=== PATIENT | female | born 1945 | race Caucasian/White ===

== ENCOUNTER → 2016-10-03 | Outpatient (CLI) | payer MEDICARE, MEDICAID ==
[~2016-10-03] MED LIST: ASPI81TA2 PO; FLUT1DIS3 ORAL INH; GADOBUTROL 10mMol/10ml INJECTION IV ONE; IPRA3AMP AEROSOL; METF-462 PO; NITR0.4T38 SL; OXYC1TAB8 PO; SALINE FLUSH 10ml SYRINGE ONE; TRAM50TA4 PO; TRAZ-170 PO
--- NOTE | 2016-10-03 17:28 | DI ---
Indication: ITS.REASON: C34.12 Malignant neoplasm of upper lobe, left bronchus or lung PROCEDURE: MRI THORACIC SPINE W/WO CONTRA: Encounter: Initial Comparison: Thoracic spine radiographs dated August 25, 2016 Technique: Multiplanar, multisequence, thoracic spine protocol MR imaging with and without contrast of the spine was acquired. Contrast: 6.5 mL of Gadavist FINDINGS: Post radiation changes noted in the upper to mid thoracic spine. Alignment of the thoracic spine is stable with scoliosis. The vertebral body heights are maintained. Age-appropriate degenerative changes are seen within the facet joints and intervertebral disc, but these do not result in significant compromise of the spinal canal or neural foramina. The thoracic cord is normal in morphology, caliber, and signal intensity on the acquired sequences. There is no evidence of cord compression or intraspinal mass. No abnormal enhancement is evident. Severe degenerative disk disease in the lower cervical spine, incompletely evaluated on this study. There appears to be some cord impingement and probable myelomalacia at the C6-C7 level. Cavitary left lower lobe lung mass, incompletely evaluated on this modality and not completely imaged. IMPRESSION: 1. No metastatic disease seen. No acute fracture. 2. Severe degenerative disk disease in the visualized lower cervical spine. .
== END ==
LOC: IMA 16:19
PROVIDERS: ATTEND Internal Medicine Hematology & Oncology
DX: C34.12 Malignant neoplasm of upper lobe, left bronchus or lung (principal); M50.323 Other cervical disc degeneration at C6-C7 level
CPT/HCPCS: 72157; A9585; J1642

== ENCOUNTER → 2016-10-20 | Outpatient (CLI) | payer MEDICARE, MEDICAID ==
[~2016-10-20] MED LIST changes: -GADOBUTROL 10mMol/10ml INJECTION IV ONE; -SALINE FLUSH 10ml SYRINGE ONE
--- NOTE | 2016-10-20 08:29 | DI ---
INDICATION: ITS.REASON: C34.12 LEFT LUNG CA PROCEDURE: CHEST 2-VIEWS UPRIGHT (PA \T\ LAT) Encounter: Subsequent COMPARISON: CT chest from September 19, 2016 and chest x-ray dated August 04, 2016 FINDINGS: Cavitary left upper lobe lung mass is better evaluated on the recent CT comparison. Radiographic measurements are stable from the July comparison chest x-ray. Calcified granulomas in the right lung. No focal pneumonia. There is no pleural effusion or pneumothorax. The heart size, mediastinal contours and pulmonary vascularity are unchanged. Right IJ port catheter. IMPRESSION: Stable appearance of the chest without evidence of pneumonia. .
== END ==
LOC: IMA 07:56
PROVIDERS: ATTEND Internal Medicine Hematology & Oncology
DX: C34.12 Malignant neoplasm of upper lobe, left bronchus or lung (principal)

== ENCOUNTER → 2016-11-10 | Outpatient (CLI) | payer MEDICARE, MEDICAID ==
--- NOTE | 2016-11-10 12:35 | DI ---
INDICATION: ITS.REASON: C34.12 Malignant neoplasm of upper lobe, left bronchus or lung PROCEDURE: CHEST 2-VIEWS UPRIGHT (PA \T\ LAT) Encounter: Initial COMPARISON: 10/20/2016 FINDINGS: There is a patchy oval centrally cystic lesion in the left mid to upper lung that measures 2.6 x 3.7 cm compared to 4 x 3.2 on prior studies. The lungs are somewhat emphysematous and hyperinflated with some lobulation of the diaphragms. In the right lung base laterally. Heart size is normal. There is mild dextroconvexity of the thoracolumbar junction. Right no pleural effusion. The there is a right IJ port in place with its tip overlying the mid to lower SVC, unchanged. Heart size, mediastinal contours and pulmonary vascularity are within normal limits. There is no significant skeletal abnormality. IMPRESSION: Cavitary lesion in the left upper lobe, without significant change from prior exam. .
== END ==
LOC: IMA 07:28
PROVIDERS: ATTEND Internal Medicine Hematology & Oncology
DX: C34.12 Malignant neoplasm of upper lobe, left bronchus or lung (principal)

== ENCOUNTER → 2016-12-03 | Outpatient (CLI) | payer MEDICARE, MEDICAID ==
[~2016-12-03] MED LIST changes: +IOHEXOL 300 MG/ML 50ml INJECTION ONE; +IOHEXOL 300 MG/ML 75ml INJECTION ONE; +NORMAL SALINE 100 ML ONE; +SALINE FLUSH 10ml SYRINGE ONE
--- NOTE | 2016-12-03 10:58 | DI ---
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 MRI abdomen dated May 06, 2016 also used. Technique: Axial CT images were performed through the neck, chest, abdomen and pelvis after the administration of intravenous contrast. Coronal and sagittal two-dimensional reformats. Automated Exposure Control and Iterative Reconstruction dose reducing techniques were utilized. Contrast: Omnipaque 300 120 mL Findings: Neck: Stable nodule inferior to the left lobe of the thyroid gland measuring 0.6 cm in short axis with enhancement. Thyroid nodules better seen on prior ultrasound and appear unchanged by CT. No new or enlarging adenopathy seen in the neck. The parotid and submandibular glands are within normal limits. Scattered small cervical level 2B and five nodes appear stable. Skull base is within normal limits. Bone windows are unchanged. Chest: Cavitary left upper lobe lung mass is slightly smaller with decreasing solid component. This measures 2.6 x 1.9 cm compared to 2.6 x 2.1 cm previously. Stable small nodule in the right middle lobe. Calcified granulomas in the right middle and right lower lobes. Unchanged 5 mm right upper lobe nodule on image #14. Tiny subpleural nodules in the right defects are also unchanged. No pleural effusion or pneumothorax. The central airways are patent. Stable 5 mm left upper lobe nodule on image #29. Small fluid collection in the left axilla on image #16 measures 1.4 cm in short axis. This is stable from the prior exam and probably represents a small seroma. No new or enlarging axillary or mediastinal adenopathy. Heart size is normal. No pericardial effusion. Abdomen/pelvis: The liver again shows a small arterially imaging focus in segment IVb on axial image #66 of the chest series measuring 1 cm in diameter. This was shown to be a hemangioma prior MRI. There is a low-attenuation focus just posterior to this region which is present on the prior studies but appears more prominent on today's exam. This region measures 3.4 x 2.7 cm in the coronal plane on image #19 compared to 2.2 x 2 cm on the April 2016 comparison and 3 x 2.6 cm on the September study. There is also a separate area of low-attenuation in the caudate on axial image #25 measuring 2.8 x 1.2 cm in diameter. This is stable from the most recent comparison study but does also appear more prominent than the 2016 comparisons. No bile duct dilatation the spleen, pancreas and adrenal glands are within normal limits. Kidneys are stable. No abdominal or pelvic lymphadenopathy. Bladder is normal. Uterus is absent. No free fluid. No evidence of a bowel obstruction. Bone windows show no lytic or blastic osseous lesions. Impression: 1. Interval decrease in size and solid component within the cavitary left upper lobe mass consistent with response to therapy. 2. Increasing conspicuity of low attenuation regions in the central aspect of the liver that could be due to increasing focal fatty infiltration given the presence of vessels traversing these lesions or possibly metastatic disease. Repeat abdominal MRI could be performed for further evaluation. .
== END ==
LOC: IMA 08:03
PROVIDERS: ATTEND Internal Medicine Hematology & Oncology
DX: C34.12 Malignant neoplasm of upper lobe, left bronchus or lung (principal); C82.08 Follicular lymphoma grade I, lymph nodes of multiple sites; R93.2 Abnormal findings on diagnostic imaging of liver and biliary tract
CPT/HCPCS: 70491; 71260; 74177; J7050; Q9967